=== PATIENT | female | born 1975 | race Two or more races ===

== ENCOUNTER 2024-12-11 08:02 | Outpatient (RCR) | payer MEDICAID, SELFPAY ==
--- NOTE | 2024-12-11 08:32 | PT.OIERPT ---
PT OP Initial Eval Patient Information Outpatient Physical Therapy Treatment Date: 12/11/24 Visit Reasons: RT hand pain Medical Diagnosis: G56.01 S52.501A Treatment Dx #1: R hand weakness Treatment Dx #2: Dec R hand ROM Start of Care: 12/11/24 Date of Onset: 09/08/24 DOS Smoking Status Smoking Status: Never smoker Initial Assessment Subjective: Pt is 49 yr old east timorese speaking female s/p R wrist ORIF after falling and distal radius and ulnar styloid process fractures. Pt reports difficulty making a fist and doing HH chores, dressing, hair care. The wrist hurts with movement variable pain level. 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 Pt requires skilled therapy to meet goals and has fair rehab potential. 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 Ind with HEP 2. Improved wrist AROM to at least 45 deg flexion and extension to dress 3. Improved fist ROM to full to grasp objects and do hair care 4. Improved bar waiter/waitress strength on R to at least 25 lbs to do HH chores Treatment Plan ? 1. Manual therapy ? 2. Therex ? 3. Modalities as indicated, moist heat, ice, estim Frequency and Duration: 2x a week for 6 weeks plus the evaluation Certification Dates: 12/11/24 to 03/12/25 Procedure Charges OP PT Eval Mod Complex 30 minutes: Yes
== END 2024-12-15 23:59 | disposition home or self-care (01) ==
LOC: CPTX 08:02
PROVIDERS: PCP Surgery Surgery of the Hand; Referring Provider Surgery Surgery of the Hand; Visit Provider Surgery Surgery of the Hand
DX: M25.531 Pain in right wrist (principal); R53.1 Weakness; G56.01 Carpal tunnel syndrome, right upper limb; S52.511D Displaced fracture of right radial styloid process, subsequent encounter for closed fracture with routine healing; S52.611D Displaced fracture of right ulna styloid process, subsequent encounter for closed fracture with routine healing; W19.XXXD Unspecified fall, subsequent encounter
CPT/HCPCS: 97162

== ENCOUNTER → 2025-01-07 | Outpatient (CLI) | payer MEDICAID, SELFPAY ==
--- NOTE | 2025-01-07 12:40 | XR_ITS ---
Examination: Bone densitometry Date and time of exam:January 07, 2025 1237 hours INDICATIONS: Menopause age 48, family history mother osteoporosis Technique: Lumbar spine and hip total bone mineralization values of an calculated. Peak reference and age match control results have been displayed. Findings: Lumbar spine total bone mineralization is1.097 gm/cm2. This is 0.5 standard deviations above peak reference. This is 1.3 standard deviations above age-matched controls. Hip total bone mineralization is 0.917 gm/cm2 This is 0.3 standard deviations below peak reference. This is point standard deviations above age-matched controls Impression: There is normal mineralization based on lumbar spine measurements. There is osteopenia based on hip measurements
== END | disposition home or self-care (01) ==
PROVIDERS: PCP Physician Assistant Medical; Referring Provider Physician Assistant Medical; Visit Provider Physician Assistant Medical
DX: Z13.820 Encounter for screening for osteoporosis (principal); M85.88 Other specified disorders of bone density and structure, other site
CPT/HCPCS: 77080

== ENCOUNTER 2025-01-15 14:00 | Outpatient (RCR) | payer MEDICAID, SELFPAY ==
--- NOTE | 2024-12-17 10:17 | PT.ODAYNRPT ---
PT Outpatient Daily Note OP Daily Note Outpatient Physical Therapy Treatment Date: 12/17/24 Visit Reasons: RT hand pain Subjective: She wasn't stretching the MCP's as much as the PIP and DIP's at home Objective: See F/S for therex Assessment: Limited MCP flexion limits fist ROM Plan: Continue per POC Length of Time (minutes) of Treatment: 30 Minutes Procedure Charges Therapeutic Exercise 30 minutes: Yes
--- NOTE | 2024-12-22 10:34 | PT.ODAYNRPT ---
PT Outpatient Daily Note OP Daily Note Outpatient Physical Therapy Treatment Date: 12/22/24 Visit Reasons: RT hand pain Subjective: She wasn't stretching the MCP's as much as the PIP and DIP's at home Objective: See F/S for therex MT: PROM into MCP flexion digits 2-4 x5' Assessment: Limited MCP flexion limits fist ROM Plan: Continue per POC Length of Time (minutes) of Treatment: 30 Minutes Procedure Charges Therapeutic Exercise 30 minutes: Yes
--- NOTE | 2025-01-05 12:54 | PT.ODAYNRPT ---
PT Outpatient Daily Note OP Daily Note Outpatient Physical Therapy Treatment Date: 01/05/25 Visit Reasons: RT hand pain Subjective: She is stretching the MCP's and the wrist and the PIP and DIP's at home Objective: See F/S for therex MT: PROM into flexion digits 2-4 x5' Assessment: The index finger is limited into flexion to not touch the palm and the other fingers touch the palm Plan: Continue per POC Length of Time (minutes) of Treatment: 30 Minutes Procedure Charges Therapeutic Exercise 30 minutes: Yes
--- NOTE | 2025-01-13 16:22 | PT.ODAYNRPT ---
PT Outpatient Daily Note OP Daily Note Outpatient Physical Therapy Treatment Date: 01/13/25 Visit Reasons: RT hand pain Subjective: She is stretching the MCP's and the wrist and the PIP and DIP's at home Objective: See F/S for therex MT: PROM into flexion digit 2 to make full fist x5' Assessment: The index finger is less limited into flexion and can touch the palm which is an improvement Plan: Continue per POC Length of Time (minutes) of Treatment: 30 Minutes Procedure Charges Therapeutic Exercise 30 minutes: Yes
--- NOTE | 2025-01-15 14:55 | PTNOTE_ITS ---
PT Outpatient Daily Note OP Daily Note Outpatient Physical Therapy Treatment Date: 01/15/25 Visit Reasons: RT hand pain Subjective: Pt reports R hand is doing better but still not where she would like. 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 Objective: Please see flow sheet for ther ex list. Assessment: Pt demonstrates good tolerance with interventions, minimal pain with PROm of digits into flexion. Plan: Continue with poC. Length of Time (minutes) of Treatment: 30 Minutes Procedure Charges Therapeutic Exercise 30 minutes: Yes
== END 2025-01-15 23:59 | disposition home or self-care (01) ==
LOC: CPTX 14:00
PROVIDERS: PCP Surgery Surgery of the Hand; Referring Provider Surgery Surgery of the Hand; Visit Provider Surgery Surgery of the Hand
DX: M25.531 Pain in right wrist (principal); R53.1 Weakness; S52.501D Unspecified fracture of the lower end of right radius, subsequent encounter for closed fracture with routine healing; S52.611D Displaced fracture of right ulna styloid process, subsequent encounter for closed fracture with routine healing; W19.XXXD Unspecified fall, subsequent encounter; G56.01 Carpal tunnel syndrome, right upper limb
CPT/HCPCS: 97110

== ENCOUNTER 2025-02-05 15:30 | Outpatient (RCR) | payer MEDICAID, SELFPAY ==
--- NOTE | 2025-01-20 16:56 | PT.ODAYNRPT ---
PT Outpatient Daily Note OP Daily Note Outpatient Physical Therapy Treatment Date: 01/20/25 Visit Reasons: rt hand pain Subjective: She is stretching the MCP's and the wrist and the PIP and DIP's at home Objective: See F/S for therex MT: PROM into flexion digit 2 to make full fist x5' Assessment: The index finger is less limited into flexion and can touch the palm which is an improvement Plan: Continue per POC Length of Time (minutes) of Treatment: 30 Minutes Procedure Charges Therapeutic Exercise 30 minutes: Yes
--- NOTE | 2025-01-22 16:16 | PT.ODAYNRPT ---
PT Outpatient Daily Note OP Daily Note Outpatient Physical Therapy Treatment Date: 01/22/25 Visit Reasons: rt hand pain Subjective: She is stretching the MCP's and the wrist and the PIP and DIP's at home Objective: See F/S for therex Assessment: The index finger is less limited into flexion and can touch the palm which is an improvement Plan: Continue per POC Length of Time (minutes) of Treatment: 30 Minutes Procedure Charges Therapeutic Exercise 30 minutes: Yes
--- NOTE | 2025-01-26 17:26 | PT.ODAYNRPT ---
PT Outpatient Daily Note OP Daily Note Outpatient Physical Therapy Treatment Date: 01/26/25 Visit Reasons: rt hand pain Subjective: She is stretching the MCP's and the wrist and the PIP and DIP's at home Objective: See F/S for therex MT: STM incision scar x5' Assessment: Low TTP of incision scar with MT but some pain with full extension of the wrist. The index finger is less limited into flexion and can touch the palm which is an improvement Plan: Continue per POC Length of Time (minutes) of Treatment: 30 Minutes Procedure Charges Therapeutic Exercise 30 minutes: Yes
--- NOTE | 2025-01-28 17:19 | PT.ODAYNRPT ---
PT Outpatient Daily Note OP Daily Note Outpatient Physical Therapy Treatment Date: 01/28/25 Visit Reasons: rt hand pain Subjective: She is stretching the MCP's and the wrist and the PIP and DIP's at home Objective: See F/S for therex Assessment: Limited wrist flexion and extension ROM by pain and tightness Plan: Continue per POC Length of Time (minutes) of Treatment: 30 Minutes Procedure Charges Therapeutic Exercise 30 minutes: Yes
--- NOTE | 2025-02-02 16:23 | PT.ODAYNRPT ---
PT Outpatient Daily Note OP Daily Note Outpatient Physical Therapy Treatment Date: 02/02/25 Visit Reasons: rt hand pain Subjective: She is stretching the MCP's and the wrist and the PIP and DIP's at home Objective: See F/S for therex MT: PROM into wrist extension x3' Assessment: Improved wrist flexion and extension ROM Plan: Continue per POC Length of Time (minutes) of Treatment: 30 Minutes Procedure Charges Therapeutic Exercise 30 minutes: Yes
--- NOTE | 2025-02-05 17:33 | PT.ODAYNRPT ---
PT Outpatient Daily Note OP Daily Note Outpatient Physical Therapy Treatment Date: 02/05/25 Visit Reasons: rt hand pain Subjective: She is stretching the MCP's and the wrist and the PIP and DIP's at home Objective: See F/S for therex Assessment: Improved wrist flexion and extension ROM Plan: Reassess Length of Time (minutes) of Treatment: 30 Minutes Procedure Charges Therapeutic Exercise 30 minutes: Yes
== END 2025-02-15 23:59 | disposition home or self-care (01) ==
LOC: CPTX 15:30
PROVIDERS: PCP Surgery Surgery of the Hand; Referring Provider Surgery Surgery of the Hand; Visit Provider Surgery Surgery of the Hand
DX: R53.1 Weakness (principal); S52.611D Displaced fracture of right ulna styloid process, subsequent encounter for closed fracture with routine healing; S52.511D Displaced fracture of right radial styloid process, subsequent encounter for closed fracture with routine healing; W19.XXXD Unspecified fall, subsequent encounter; G56.01 Carpal tunnel syndrome, right upper limb
CPT/HCPCS: 97110

== ENCOUNTER 2025-06-17 15:00 | Outpatient (RCR) | payer MEDICAID, SELFPAY ==
--- NOTE | 2025-06-09 15:19 | PTNOTE_ITS ---
PT OP Initial Eval Patient Information Outpatient Physical Therapy Treatment Date: 06/09/25 Visit Reasons: RIGHT HAND PAIN Medical Diagnosis: M25.531; M79.641 Treatment Dx #1: Right Hand Pain Treatment Dx #2: Right Wrist Mobility Deficits Start of Care: 06/09/25 Date of Onset: 09/08/24 Smoking Status Smoking Status: Never smoker Initial Assessment Subjective: Pt is a 50 y/o female s/p right distal radius and ulna ORIF 09/08/24 secondary to fractures from a fall. Pt still has pain (5/10) with activities. Pt has limitation with gripping, lifting, chores, cooking, cleaning, and performing recreational activities. Pt has attempted 1 bout of physical therapy and it helped. Objective: Right Wrist AROM Flexion: 45 deg Extension: 50 deg Pronation: 40 deg Supination: 80 deg Radial Deviation: 18 deg Ulnar Deviation: 12 deg Right Wrist MMTs: grossly 3+/5 Classification Officer Strength L: 71 lbs R: 42 lbs Assessment: Pt demonstrate right wrist mobility and strength deficits s/p wrist ORIF leading to difficulty with ADLs. 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 1) Increase right wrist AROM WFL in 6 wks to be able to perform chores 2) Increase right inspector circuitry negative strength to 60 lbs in 6 wks to be able to perform gripping activities 3) Decrease wrist pain to 2/10 in 6 wks to be able to perform recreational activities 4) Increase right wrist MMTs grossly to 4-/5 in 6 wks to be able to cook and clean 5) Indep with HEP Treatment Plan 1) Manual Therapy 2) Therapeutic Activities 3) Therapeutic Exercises 4) Modalities (ice, heat) Frequency and Duration: 2 x wk for 6 wks Certification Dates: 06/09/25 to 09/07/25 Procedure Charges OP PT Eval Mod Complex 30 minutes: Yes
--- NOTE | 2025-06-15 16:12 | PTNOTE_ITS ---
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 Objective: Please see flow sheet for ther ex list. Assessment: Focus on restoring director of occupational therapy strength and ROM. Plan: Continue with poC. Length of Time (minutes) of Treatment: 30 Minutes Procedure Charges Therapeutic Exercise 30 minutes: Yes
--- NOTE | 2025-06-17 15:38 | PT.ODAYNRPT ---
PT Outpatient Daily Note OP Daily Note Outpatient Physical Therapy Treatment Date: 06/17/25 Visit Reasons: RIGHT HAND PAIN Subjective: Pt's hand is much better. Pt notice improved wrist ROM. Objective: Please see flow chart for list of ther ex performed Assessment: progressing with wrist AROM and resistance with minimal pain Plan: Continue with PT Length of Time (minutes) of Treatment: 30 Minutes Procedure Charges Therapeutic Exercise 30 minutes: Yes
== END 2025-06-17 23:59 | disposition home or self-care (01) ==
LOC: CPTX 15:00
PROVIDERS: PCP Surgery Surgery of the Hand; Referring Provider Surgery Surgery of the Hand; Visit Provider Surgery Surgery of the Hand
DX: M25.531 Pain in right wrist (principal); M79.641 Pain in right hand; S52.501D Unspecified fracture of the lower end of right radius, subsequent encounter for closed fracture with routine healing; W19.XXXD Unspecified fall, subsequent encounter
CPT/HCPCS: 97110; 97162